=== PATIENT | female | born 2000 | race Caucasian/White ===

== ENCOUNTER 2018-01-26 15:27 | Emergency (ER) | payer OTHER | END 2018-01-26 15:46 | disposition home or self-care (01) | LOC: E/R 15:27 | DX: H01.114 Allergic dermatitis of left upper eyelid (principal) | CPT/HCPCS: 99283; Z7502 ==

== ENCOUNTER 2018-05-09 00:54 | Emergency (ER) | payer OTHER | END 2018-05-09 03:27 | disposition home or self-care (01) | LOC: FTE 00:54 | DX: L03.031 Cellulitis of right toe (principal) | CPT/HCPCS: 99284 ==

== ENCOUNTER 2018-06-09 05:08 | Emergency (ER) | payer OTHER ==
[2018-06-09 05:37] LABS: URINE BLOOD (Dip) POC 1+ (NEGATIVE); URINE GLUCOSE (Dip) POC Negative (NEGATIVE); URINE KETONES (Dip) POC Negative (NEGATIVE); URINE LEUKOCYTE EST (Dip) POC 1+ (NEGATIVE); URINE NITRITE (Dip) POC Negative (NEGATIVE); URINE TOTAL PROTEIN POC Negative (NEGATIVE)
[2018-06-09] MEDS: IBUPROFEN 600 MG TAB PO (05:43)
== END 2018-06-09 07:56 | disposition home or self-care (01) ==
LOC: FTE 05:08
DX: N30.01 Acute cystitis with hematuria (principal)
CPT/HCPCS: 81003; 81025; 99283

== ENCOUNTER 2018-10-03 23:44 | Emergency (ER) | payer OTHER ==
[2018-10-04] MEDS: IBUPROFEN 600 MG TAB PO (02:06)
== END 2018-10-04 03:36 | disposition home or self-care (01) ==
LOC: FTE 23:44
DX: M94.0 Chondrocostal junction syndrome [Tietze] (principal); R40.2142 Coma scale, eyes open, spontaneous, at arrival to emergency department; R40.2362 Coma scale, best motor response, obeys commands, at arrival to emergency department; R40.2252 Coma scale, best verbal response, oriented, at arrival to emergency department
CPT/HCPCS: 71046; 71110; 93005; 99284-25

== ENCOUNTER 2018-11-19 14:59 | Emergency (ER) | payer OTHER | END 2018-11-19 16:58 | disposition home or self-care (01) | LOC: FTE 14:59 | DX: J40 Bronchitis, not specified as acute or chronic (principal) | CPT/HCPCS: 99283; Z7502 ==

== ENCOUNTER → 2019-05-03 | Emergency (ER) | payer OTHER ==
[2019-05-03] MEDS: IBUPROFEN 600 MG TAB PO (01:14)
== END | disposition home or self-care (01) ==
LOC: FTE 00:42
DX: J03.90 Acute tonsillitis, unspecified (principal)
CPT/HCPCS: 87070; 87880; 99283

== ENCOUNTER 2019-06-03 19:26 | Emergency (ER) | payer OTHER ==
[2019-06-03] MEDS: PHENAZOPYRIDINE 100 MG TAB PO (22:03)
== END 2019-06-03 23:30 | disposition home or self-care (01) ==
LOC: FTE 19:26
DX: N39.0 Urinary tract infection, site not specified (principal)
CPT/HCPCS: 81001; 84703; 87086; 99283